=== PATIENT | male | born 1985 | race Caucasian/White ===

== ENCOUNTER 2022-07-22 10:48 | Emergency (ER) | payer OTHER ==
[~2022-07-22] VITALS: Ht 175.3 cm; Wt 88.8 kg
[2022-07-22] MEDS ORDERED: IBUP-1022 PO (13:12)
[2022-07-22] MEDS ORDERED: CYCL-707 PO (13:12)
[2022-07-22 13:25] VITALS: BP 135/86
== END 2022-07-22 13:27 | disposition home or self-care (01) ==
LOC: M ED 10:48
DX: S14.2XXA Injury of nerve root of cervical spine, initial encounter (principal); Z88.1 Allergy status to other antibiotic agents; Z79.891 Long term (current) use of opiate analgesic; Y92.9 Unspecified place or not applicable; Y93.9 Activity, unspecified